=== PATIENT | male | born 1950 | race American Indian/Alaskan Native ===

== ENCOUNTER 2018-01-10 20:41 | Emergency (ER) | payer OTHER ==
[2018-01-10 21:26] VITALS: BP 120/61
[2018-01-10] MEDS ORDERED: PERCOCET 5/325 PO ONE (22:50)
[2018-01-10] MEDS ORDERED: ZOFRAN ODT PO ONE (22:51)
--- NOTE | 2018-01-10 22:54 | Emergency Department Report ---
ED Extremity Problem HPI - General Chief complaint: Extremity Injury, Lower Stated complaint: LEFT LEG PAIN Time Seen by Provider: 01/10/18 22:06 Source: patient Mode of arrival: Ambulatory Limitations: Physical Limitation - History of Present Illness Initial comments: 67-year-old male past medical history severe osteoarthritis both knees, COPD, hypertension, PTSD presents with complaint of acute on chronic bilateral knee pain slightly worse on left than right. Patient states that his knees constantly hurt him but have been getting progressively worse over the last several months. States he follows up with a primary care physician at the [facility] for this issue. While walking today patient states pain was severe and his left knee buckled slightly. Primarily complaining of pain in left knee. Patient uses a walker to ambulate. States he has a knee brace which she does not have on at this time. Patient is awake alert and oriented 3 denies any fevers or chills. Visibly ranging both of his knees. No visible erythema. Patient states that he is being driven home by his son. MD Complaint: extremity pain, joint swelling -: year(s) Location: left, right, knee History of Same: Yes -: Yes arthralgia Severity scale (0 -10): 10 Quality: aching Consistency: constant Improves with: cold therapy, medication Worsens with: weight bearing, walking, exertion Associated Symptoms: denies other symptoms - Related Data Home Medications Medication Instructions Recorded Confirmed Last Taken Acetaminophen [Tylenol] 325 mg PO Q6HR PRN 01/10/18 01/10/18 01/10/18 Diclofenac Sodium [Voltaren] 100 gm TP DAILY 01/10/18 01/10/18 01/10/18 Hydrochlorothiazide [HCTZ] 25 mg PO QDAY 01/10/18 01/10/18 01/10/18 Losartan [Cozaar] 25 mg PO QDAY 01/10/18 01/10/18 01/10/18 Tamsulosin [Flomax] 0.4 mg PO QDAY 01/10/18 01/10/18 01/10/18 amLODIPine [Norvasc] 10 mg PO DAILY 01/10/18 01/10/18 01/10/18 hydrALAZINE [Apresoline] 25 mg PO DAILY 01/10/18 01/10/18 01/10/18 Previous Rx's Medication Instructions Recorded Last Taken Type Acetaminophen [Tylenol Extra 500 mg PO Q8H PRN #25 tablet 01/10/18 Unknown Rx Strength] oxyCODONE /ACETAMINOPHEN [Percocet 1 tab PO Q6HR PRN #10 tablet 01/10/18 Unknown Rx 5/325] Allergies Allergy/AdvReac Type Severity Reaction Status Date / Time No Known Allergies Allergy Unverified 01/10/18 21:26 ED Review of Systems ROS: Stated complaint: LEFT LEG PAIN Other details as noted in HPI Constitutional: denies: chills, fever Eyes: denies: eye pain, eye discharge, vision change ENT: denies: ear pain, throat pain Respiratory: denies: cough, shortness of breath, wheezing Cardiovascular: denies: chest pain, palpitations Endocrine: no symptoms reported Gastrointestinal: denies: abdominal pain, nausea, diarrhea Genitourinary: denies: urgency, dysuria Musculoskeletal: arthralgia. denies: back pain, joint swelling Skin: denies: rash, lesions Neurological: denies: headache, weakness, paresthesias Psychiatric: denies: anxiety, depression Hematological/Lymphatic: denies: easy bleeding, easy bruising ED Past Medical Hx - Past Medical History Previous Medical History?: Yes Hx Hypertension: Yes Hx Arthritis: Yes (knees) Hx Psychiatric Treatment: Yes (PTSD) Hx COPD: Yes - Surgical History Past Surgical History?: No - Social History Smoking Status: Never Smoker Substance Use Type: Alcohol - Medications Home Medications: Home Medications Medication Instructions Recorded Confirmed Last Taken Type Acetaminophen [Tylenol Extra 500 mg PO Q8H PRN #25 tablet 01/10/18 Unknown Rx Strength] Acetaminophen [Tylenol] 325 mg PO Q6HR PRN 01/10/18 01/10/18 01/10/18 History Diclofenac Sodium [Voltaren] 100 gm TP DAILY 01/10/18 01/10/18 01/10/18 History Hydrochlorothiazide [HCTZ] 25 mg PO QDAY 01/10/18 01/10/18 01/10/18 History Losartan [Cozaar] 25 mg PO QDAY 01/10/18 01/10/18 01/10/18 History Tamsulosin [Flomax] 0.4 mg PO QDAY 01/10/18 01/10/18 01/10/18 History amLODIPine [Norvasc] 10 mg PO DAILY 01/10/18 01/10/18 01/10/18 History hydrALAZINE [Apresoline] 25 mg PO DAILY 01/10/18 01/10/18 01/10/18 History oxyCODONE /ACETAMINOPHEN [Percocet 1 tab PO Q6HR PRN #10 tablet 01/10/18 Unknown Rx 5/325] ED Physical Exam - General Limitations: Physical Limitation General appearance: alert, in no apparent distress - Head Head exam: Present: atraumatic, normocephalic - Eye Eye exam: Present: normal appearance, PERRL, EOMI - ENT ENT exam: Present: mucous membranes moist - Neck Neck exam: Present: normal inspection - Respiratory Respiratory exam: Present: normal lung sounds bilaterally. Absent: respiratory distress - Cardiovascular Cardiovascular Exam: Present: regular rate, normal rhythm. Absent: systolic murmur, diastolic murmur, rubs, gallop - GI/Abdominal GI/Abdominal exam: Present: soft, normal bowel sounds - Rectal Rectal exam: Present: deferred - Extremities Exam Extremities exam: Present: normal inspection - Expanded Lower Extremity Exam Left Upper Leg exam: Present: normal inspection, full ROM Knee exam: Present: normal inspection (no visible erythema or purulent areas near knee), full ROM (patient is able to flex and extend his knee without difficulty however states that it aches when he does this), swelling, pain/ laxity with valgus, pain/laxity with varus, full knee extension Lower Leg exam: Present: normal inspection, full ROM Ankle exam: Present: normal inspection, full ROM Foot/Toe exam: Present: normal inspection, full ROM Neuro vascular tendon exam: Present: no vascular compromise Gait: Positive: antalgic - Back Exam Back exam: Present: normal inspection - Neurological Exam Neurological exam: Present: alert, oriented X3 - Psychiatric Psychiatric exam: Present: normal affect, normal mood - Skin Skin exam: Present: warm, dry, intact, normal color. Absent: rash ED Course Vital Signs 01/10/18 21:19 Temperature 98 F Pulse Rate 93 H Respiratory 20 Rate Blood Pressure 120/61 Blood Pressure 120/61 [Right] O2 Sat by Pulse 98 Oximetry ED Medical Decision Making - Medical Decision Making A/P: Severe osteoarthritis bilateral knees 1-short course analgesics 2-follow-up with orthopedics and primary care. Patient states that he has the ability to do this at the [facility]. I also provided him with external referrals for orthopedics. 3-no clinical signs of infection overlying knees 4- patient ambulatory with his walker. Critical care attestation.: If time is entered above; I have spent that time in minutes in the direct care of this critically ill patient, excluding procedure time. ED Disposition Clinical Impression: Chronic pain of both knees Disposition: TO HOME OR SELFCARE Is pt being admited?: No Does the pt Need Aspirin: No Condition: Stable Instructions: Arthralgia (ED), Osteoarthritis (ED) Prescriptions: Acetaminophen [Tylenol Extra Strength] 500 mg PO Q8H PRN #25 tablet PRN Reason: Pain oxyCODONE /ACETAMINOPHEN [Percocet 5/325] 1 tab PO Q6HR PRN #10 tablet PRN Reason: Pain Referrals: [facility] [Other] - 3-5 Days MEÑO MARTINEZ MD [Staff Physician] - 3-5 Days [facility] [Provider Group] - 3-5 Days Time of Disposition: 22:56
--- NOTE | 2018-01-10 23:00 | XRay Report ---
FINAL REPORT EXAM: XR KNEE BILAT 1-2V HISTORY: fall TECHNIQUE: Bilateral knees five views PRIORS: None. FINDINGS: There is marked bilateral medial tibiofemoral joint space narrowing and narrowing at the patellofemoral joint spaces. There is corticated deformity the right fibular head which may reflect sequela of remote trauma no acute fractures are identified bilaterally. There is no evidence for joint effusion. IMPRESSION: Advanced bilateral degenerative change No acute fractures are identified
== END 2018-01-10 23:16 | disposition home or self-care (01) ==
LOC: ED 20:41
DX: M25.562 Pain in left knee (principal); M25.561 Pain in right knee; G89.29 Other chronic pain; I10 Essential (primary) hypertension; M19.90 Unspecified osteoarthritis, unspecified site; J44.9 Chronic obstructive pulmonary disease, unspecified
CPT/HCPCS: 99283; Q0162

== ENCOUNTER 2021-01-18 19:28 | Emergency (ER) | payer OTHER ==
[2021-01-18] MEDS ORDERED: ASPIRIN 325 MG TAB PO ONE (21:21)
[2021-01-18] MEDS ORDERED: hydrALAZINE 20 MG/1 ML INJ IV ONE (21:21)
[2021-01-18 21:37] LABS: Basophils # (Auto) 0.1 K/mm3 (0.0-0.1); Basophils % (Auto) 0.6 % (0.0-1.8); Eosinophils # (Auto) 0.1 K/mm3 (0.0-0.4); Eosinophils % (Auto) 0.7 % (0.0-4.3); Hematocrit 41.7 % (35.5-45.6); Hemoglobin 14.2 gm/dl (11.8-15.2); Lymphocytes # (Auto) 1.2 K/mm3 (1.2-5.4); Lymphocytes % (Auto) 13.6 % (13.4-35.0); Mean Corpuscular HGB Conc 34 % (32-34); Mean Corpuscular Volume 92 fl (84-94); Monocytes # (Auto) 1.2 K/mm3 (0.0-0.8); Monocytes % (Auto) 12.9 % (0.0-7.3); Platelet Count 205 K/mm3 (140-440); Red Blood Count 4.53 M/mm3 (3.65-5.03); Red Cell Distribution Width 17.5 % (13.2-15.2)
[2021-01-18 22:19] LABS: Alanine Aminotransferase 15 units/L (7-56); BUN/Creatinine Ratio 19; Blood Urea Nitrogen 21 mg/dL (9-20); Calcium 9.1 mg/dL (8.4-10.2); Hemolysis Index 33
--- NOTE | 2021-01-18 22:37 | XRay Report ---
CHEST 2 VIEWS INDICATION / CLINICAL INFORMATION: CHEST PAIN. COMPARISON: None available. FINDINGS: SUPPORT DEVICES: None. HEART / MEDIASTINUM: Minimally enlarged cardiac silhouette. LUNGS / PLEURA: No confluent infiltrates or pleural effusions. Mild central pulmonary vascular conges tion. No pneumothorax. ADDITIONAL FINDINGS: No significant additional findings. IMPRESSION: 1. Minimally enlarged cardiac silhouette with mild central pulmonary vascular congestion. 2. No significant interstitial edema or confluent infiltrates. Signer Name: Jones Thornton MD Signed: 01/18/2021 10:32 PM Workstation Name: [id number]
[2021-01-18] MEDS ORDERED: amLODIPine 5 MG TAB PO ONE (23:52)
[2021-01-19 00:43] VITALS: BP 168/94
--- NOTE | 2021-01-19 01:55 | Emergency Department Report ---
ED General Adult HPI - General Chief complaint: High BP Stated complaint: HTN Source: patient, EMS Mode of arrival: Ambulatory Limitations: No Limitations - History of Present Illness Initial comments: Patient is a 70-year-old -Dominican male with a history of hypertension, chronic osteoarthritis, COPD and PTSD presents to the ED with complaint of persistently elevated blood pressure for the last 8 hours after he failed to take his blood pressure medications 12 hours ago. Patient states that when he realized his blood pressure was high he decided to take his blood pressure medications about 6 hours prior to arrival in the ED. Patient states that his blood pressure has been persistently elevated sometimes as high as 170/90. Patient denies chest pain, shortness of breath, dizziness, syncope, nausea, vomiting, diarrhea, dysuria, headache, neck pain, numbness and tingling or weakness of upper and lower extremities bilaterally, abdominal pain, diaphoresis or change in vision. MD Complaint: Elevated blood pressure -: Sudden, hour(s) (8) Radiation: non-radiation Severity scale (0 -10): 0 Quality: dull Consistency: intermittent Improves with: none Worsens with: none Associated Symptoms: denies other symptoms. denies: confusion, chest pain, cough, diaphoresis, fever/chills, headaches, loss of appetite, nausea/vomiting, seizure, shortness of breath, syncope, weakness Treatments Prior to Arrival: none - Related Data Home Medications Medication Instructions Recorded Confirmed Last Taken Acetaminophen [Tylenol] 325 mg PO Q6HR PRN 01/10/18 01/10/18 01/10/18 Diclofenac Sodium [Voltaren] 100 gm TP DAILY 01/10/18 01/10/18 01/10/18 Losartan [Cozaar] 25 mg PO QDAY 01/10/18 01/10/18 01/10/18 Tamsulosin [Flomax] 0.4 mg PO QDAY 01/10/18 01/10/18 01/10/18 amLODIPine [Norvasc] 10 mg PO DAILY 01/10/18 01/10/18 01/10/18 hydrALAZINE [Apresoline] 25 mg PO DAILY 01/10/18 01/10/18 01/10/18 hydroCHLOROthiazide [HCTZ] 25 mg PO QDAY 01/10/18 01/10/18 01/10/18 Previous Rx's Medication Instructions Recorded Last Taken Type Acetaminophen [Tylenol Extra 500 mg PO Q8H PRN #25 tablet 01/10/18 Unknown Rx Strength] oxyCODONE /ACETAMINOPHEN [Percocet 1 tab PO Q6HR PRN #10 tablet 01/10/18 Unknown Rx 5/325] Allergies Allergy/AdvReac Type Severity Reaction Status Date / Time No Known Allergies Allergy Unverified 01/10/18 21:26 ED Review of Systems ROS: Stated complaint: HTN Other details as noted in HPI Constitutional: other (Elevated blood pressure). denies: chills, fever Eyes: denies: eye pain, eye discharge, vision change ENT: denies: ear pain, throat pain Respiratory: denies: cough, shortness of breath, wheezing Cardiovascular: denies: chest pain, palpitations Endocrine: no symptoms reported Gastrointestinal: denies: abdominal pain, nausea, diarrhea Genitourinary: denies: urgency, dysuria Musculoskeletal: denies: back pain, joint swelling, arthralgia Skin: denies: rash, lesions Neurological: denies: headache, weakness, paresthesias Psychiatric: anxiety. denies: depression Hematological/Lymphatic: denies: easy bleeding, easy bruising ED Past Medical Hx - Past Medical History Hx Hypertension: Yes Hx Arthritis: Yes (knees) Hx Psychiatric Treatment: Yes (PTSD) Hx COPD: Yes - Surgical History Additional Surgical History: bilat knee replacement - Social History Smoking Status: Never Smoker Substance Use Type: Alcohol - Medications Home Medications: Home Medications Medication Instructions Recorded Confirmed Last Taken Type Acetaminophen [Tylenol Extra 500 mg PO Q8H PRN #25 tablet 01/10/18 Unknown Rx Strength] Acetaminophen [Tylenol] 325 mg PO Q6HR PRN 01/10/18 01/10/18 01/10/18 History Diclofenac Sodium [Voltaren] 100 gm TP DAILY 01/10/18 01/10/18 01/10/18 History Losartan [Cozaar] 25 mg PO QDAY 01/10/18 01/10/18 01/10/18 History Tamsulosin [Flomax] 0.4 mg PO QDAY 01/10/18 01/10/18 01/10/18 History amLODIPine [Norvasc] 10 mg PO DAILY 01/10/18 01/10/18 01/10/18 History hydrALAZINE [Apresoline] 25 mg PO DAILY 01/10/18 01/10/1801/10/18 History hydroCHLOROthiazide [HCTZ] 25 mg PO QDAY 01/10/18 01/10/18 01/10/18 History oxyCODONE /ACETAMINOPHEN [Percocet 1 tab PO Q6HR PRN #10 tablet 01/10/18 Unknown Rx 5/325] ED Physical Exam - General Limitations: No Limitations General appearance: alert, in no apparent distress - Head Head exam: Present: atraumatic, normocephalic, normal inspection - Eye Eye exam: Present: normal appearance, PERRL, EOMI - ENT ENT exam: Present: normal exam, normal orophraynx, mucous membranes moist, TM's normal bilaterally, normal external ear exam - Neck Neck exam: Present: normal inspection, full ROM - Respiratory Respiratory exam: Present: normal lung sounds bilaterally. Absent: respiratory distress, wheezes, rales, rhonchi, chest wall tenderness, accessory muscle use, decreased breath sounds, prolonged expiratory - Cardiovascular Cardiovascular Exam: Present: regular rate, normal rhythm, normal heart sounds. Absent: systolic murmur, diastolic murmur, rubs, gallop - GI/Abdominal GI/Abdominal exam: Present: soft, normal bowel sounds. Absent: distended, te nderness, guarding, rebound, hyperactive bowel sounds, hypoactive bowel sounds, organomegaly - Extremities Exam Extremities exam: Present: normal inspection, full ROM, normal capillary refill - Back Exam Back exam: Present: normal inspection, full ROM. Absent: tenderness, CVA tenderness (R), CVA tenderness (L), muscle spasm, paraspinal tenderness, vertebral tenderness - Neurological Exam Neurological exam: Present: alert, oriented X3, CN II-XII intact, normal gait, reflexes normal - Psychiatric Psychiatric exam: Present: normal affect, normal mood - Skin Skin exam: Present: warm, dry, intact, normal color. Absent: rash ED Course Vital Signs 01/18/21 01/18/21 01/19/21 20:15 21:43 00:41 Temperature 98.2 F Pulse Rate 88 72 73 Respiratory 18 Rate Blood Pressure 153/96 178/93 168/94 O2 Sat by Pulse 99 Oximetry 01/19/21 00:42 Temperature Pulse Rate 73 Respiratory Rate Blood Pressure 168/94 O2 Sat by Pulse Oximetry ED Medical Decision Making - Lab Data Result diagrams: 01/18/21 21:28 01/18/21 21:28 - EKG Data EKG shows normal: sinus rhythm Rate: normal - EKG Data Interpretation: normal EKG 01/19/21 01:55 EKG shows normal sinus rhythm with ventricular rate of [address] or T wave abnormalities. - Radiology Data Radiology results: report reviewed, image reviewed [facility] [address] [place] [address] XRay Report Signed Patient: HOMER FLOOD MR#: [id number] : 1950 Acct:[id number] Age/Sex: 70 / M ADM Date: 01/18/21 Loc: ED Attending Dr: Ordering Physician: WESLY PONCE Date of Service: 01/18/21 Procedure(s): XR chest routine 2V Accession Number(s): [id number] cc: WESLY PONCE Fluoro Time In Minutes: CHEST 2 VIEWS INDICATION / CLINICAL INFORMATION: CHEST PAIN. COMPARISON: None available. FINDINGS: SUPPORT DEVICES: None. HEART / MEDIASTINUM: Minimally enlarged cardiac silhouette. LUNGS / PLEURA: No confluent infiltrates or pleural effusions. Mild central p ulmonary vascular congestion. No pneumothorax. ADDITIONAL FINDINGS: No significant additional findings. IMPRESSION: 1. Minimally enlarged cardiac silhouette with mild central pulmonary vascular congestion. 2. No significant interstitial edema or confluent infiltrates. Signer Name: Maria T Rodriguez MD Signed: 01/18/2021 10:32 PM Workstation Name: [id number] Transcribed By: Dictated By: MARIA T RODRIGUEZ Electronically Authenticated By: MARIA T RODRIGUEZ Signed Date/Time: 01/18/212231 DD/ 30 TD/TT: Print Cancel - Medical Decision Making This is a 70-year-old -Domin[place] male with a history of hypertension, chronic osteoarthritis, COPD and PTSD presents to the ED with complaint of persistently elevated blood pressure for the last 8 hours after he failed to take his blood pressure medications 12 hours ago. Patient states that when he realized his blood pressure was high he decided to take his blood pressure medications about 6 hours prior to arrival in the ED. Patient states that his blood pressure has been persistently elevated sometimes as high as 170/90. In the ED, patient is alert and oriented x3 and is not in any distress. EKG shows normal sinus rhythm with a ventricular rate of [address] or T wave abnormalities. Patient was treated in the ED with blood pressure medication and observed in the ED. Chest x-ray showed a minimally enlarged cardiac silhouette with mild central pulmonary vascular congestion, otherwise no significant interstitial edema or confluent infiltrates. Lab test results were reviewed and are all nonactionable including the initial and 3-hour repeat troponin levels. The repeat EKG was unchanged. Patient was therefore discharged home and advised to continue taking his blood pressure medications and follow-up with a primary care physician in 3 to 5 days for reevaluation. Patient is advised return to the ED immediately if symptoms get worse. - Differential Diagnosis ACS; pneumonia; anxiety; uncontrolled hypertension Critical care attestation.: If time is entered above; I have spent that time in minutes in the direct care of this critically ill patient, excluding procedure time. ED Disposition Clinical Impression: Uncontrolled stage 2 hypertension, Anxiety as acute reaction to gross stress Disposition: DC-01 TO HOME OR SELFCARE Is pt being admited?: No Does the pt Need Aspirin: No Condition: Stable Instructions: Hypertension, Adult, [id number], Hypertension (ED) Additional Instructions: All lab test results were reviewed and are all nonactionable. The EKG was unremarkable and chest x-ray showed no acute abnormalities. Therefore take your regular blood pressure medications as previously prescribed, follow-up with your primary care physician in 3 to 5 days for reevaluation. Return to the ED immediately if symptoms get worse. Referrals: [facility] [Primary Care Provider] - 3-5 Days Time of Disposition: 01:55 Print Language: ANDORRAN
--- NOTE | 2021-01-19 13:37 | Electrocardiograph Report ---
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
--- NOTE | 2021-01-19 13:39 | Electrocardiograph Report ---
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
== END 2021-01-19 02:30 | disposition home or self-care (01) ==
LOC: ED 19:28
DX: F41.1 Generalized anxiety disorder (principal); F43.0 Acute stress reaction; I10 Essential (primary) hypertension; M19.91 Primary osteoarthritis, unspecified site; J44.9 Chronic obstructive pulmonary disease, unspecified; Z98.890 Other specified postprocedural states; Z79.899 Other long term (current) drug therapy
CPT/HCPCS: 36415; 71046; 80053; 83880; 84484; 85025; 93005; 96374; 96375; 99284; J0360